=== PATIENT | male | born 1945 | race Caucasian/White ===

== ENCOUNTER 2023-12-14 06:46 | Inpatient (IN) | payer MEDICARE, SELFPAY ==
[2023-11-22 13:04] VITALS: BMI 24.8
[2023-11-22 14:38] LABS: Hematocrit 39.3 % (39.0-52.0); Hemoglobin 13.9 g/dL (13.0-18.0); Mean Corp Hgb Conc. 35.4 g/dL (33.0-37.0); Mean Corpuscular Hgb 33.3 pg (27.0-31.0); Mean Corpuscular Volume 94.2 fL (80.0-94.0); Mean Platelet Volume 11.5 fL (7.4-10.4); Platelet Count 212 10^3/uL (130-400); Red Blood Cell Count 4.17 10^6/uL (4.70-6.10); Red Cell Dist. Width 13.1 % (11.5-14.5); White Blood Cell Count 3.7 10^3/uL (4.8-10.8)
[2023-11-22 15:09] LABS: ALT (SGPT) 26 U/L (0-50); AST (SGOT) 29 U/L (17-59); Albumin 4.9 g/dl (3.5-5.0); Alkaline Phosphatase 57 U/L (38-126); Blood Urea Nitrogen 11 mg/dl (9-20); Calcium 10.1 mg/dl (8.4-10.2); Carbon Dioxide 26 mmol/L (22-30); Chloride 101 mmol/L (98-107); Estimated Creatinine Clearance 72 ml/min; Glucose 110 mg/dl (70-99); Potassium 4.5 mmol/L (3.5-5.1); Sodium 139 mmol/L (135-145); Total Protein 6.9 g/dl (6.3-8.2); eGFR > 60.00
[2023-11-23 08:39] LABS: Glycohemoglobin (HgbA1c) 5.2 % (4.0-5.6)
[2023-12-09 13:03] VITALS: BMI 24.8
--- NOTE | 2023-12-09 13:09 | PTCARENOTE ---
Pt's son Zeke states they have not set up outpt PT yet, would prefer in home PT. He was instructed to make outpt PT appt and could let Ellen in office aware that they prefer home PT.
[2023-12-14] VITALS (19 sets, daily range): BP systolic 91–134; BP diastolic 56–94; PULSE 55; O2SAT 98; BMI 24.8
[2023-12-14] MEDS: TYLENOL 650 MG PO ×5 (08:14→23:48)
[2023-12-14] MEDS: CELEBREX 200 MG PO (08:14)
[2023-12-14] MEDS: NORMOSOL-R/PLASMALYTE-A 1000 IV ×2 (08:15→14:04)
--- NOTE | 2023-12-14 12:56 | W.PN.ORTHO ---
Today's Communication / Plan
-
D/c when clinically stable.
Assessment
.
Distal Motor Intact: Yes
Dressing:
Clean, dry and intact.
Assessment:
L hip OA s/p L JOSH w/ Dr Mcfadden 12/14/23
DVT prophylaxis - Xarelto at modified dosing, b/l venous foot pumps
- Will resume Xarelto 20 mg qPM POD 3 if hemodynamically stable
HTN - + parameters - monitor BP
PAF s/p PVI 2017 and 2019 - asymptomatic rapid A fib in PACU - monitor on tele
- Consult cardio. Of note, new medical management is likely warranted. Pt cannot confirm meds d/t underlying cognitive issues. Son, Jose, cannot confirm medications we have listed on file. Jose mentions he only took Amlodipine this morning as he
could not find the patient's other medications. He typically follows cardio through [facility]; however, he did see Dr. Zamora for surgical clearance 12/04
GERD - add Pepcid HS
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
BPH - monitor voids
- Add daily Flomax
Hyperlipidemia
Childhood asthma
Thyroid nodule
Depression
Anxiety
History of alcohol abuse in remission
Discussed patient's assumed home anti-arrhythmics and post-op anti-emetics prn w/ pharmacy this AM. Tigan IM would likely be the safest anti-emetic if needed. Will hold on ordering for now. Will monitor patient closely.
Plan
.
Surgery / Date: L JOSH w/ Dr Mcfadden 12/14/23
DVT Prophylaxis: Other (Xarelto)
Activity:
Out of bed.
PT/OT
Discharge Plan: Home w/ VN
Subjective
.
.:
Patient resting comfortably.
Vital Signs and Labs
.
Vital Signs and Labs:
Lab Results
11/22/23 12:58
11/22/23 12:58
Temp Pulse Resp BP Pulse Ox
98.5 F 65 16 134/76 99
12/14/23 07:31 12/14/23 07:31 12/14/23 07:31 12/14/23 07:31 12/14/23 07:31
Physical Exam
-
HEENT: No pallor, cyanosis, or jaundice. Throat clear.
NECK: Supple. No JVD.
RESPIRATORY: Lungs clear to auscultation.
CVS: Irregular irregular.
ABDOMEN: Soft, non-tender. No distension.
EXTREMITIES: Strength equal, no calf pain with palpation/dorsiflexion.
ELECTRICIAN SECOND: AOx2 (name, place)
[2023-12-14] MEDS: LOPRESSOR 50 MG PO (13:08)
[2023-12-14] MEDS: FLOMAX 0.4 MG PO (13:09)
[2023-12-14] MEDS: TYLENOL PO (13:11)
--- NOTE | 2023-12-14 13:36 | PTCARENOTE ---
Pt arrived to [facility] [address] from PACU s/p L THR. Pt AAOx3, NV intact, L hip antibacterial dressing C/D/I. Pt oriented to call meza and room, bed locked and in lowest position, call meza within reach.
--- NOTE | 2023-12-14 13:51 | W.PN.CD ---
Addendum entered and electronically signed by Mika Arguelles MD 12/14/23 14:22:
-
-
? amlodipine use. Med list from [facility] has dilt. and not amlodipine.
Does he have HTN?
Will not use Ca++ venkata now.
Will use metoprolol.
Original Note:
Today's Communication / Plan
-
-
-
Consult Dictated
Add rate control with Metoprolol tartrate 50 mg QID (hold HR < 70 or SBP < 100)
When fully anticoagulated we can consider ERINN/DCCV should AFib persist
Unclear if he was actually taking Flecainide or perhaps dofetilide, his son has 2 med lists and the med is not on the lists and no pill bottle for it found at home per son. I needed to speak to him as the pt has memory impairment and provides
inadequate information.
Impression / Plan
-
Recurrent AFib
- Pattern in the past was paroxysmal ()
- Rate: 120s in PACU
- 2 prior AFib ablations, uncertain if he was actually taking Flecainide 100 mg BID (son says not on his med list and no pill bottles found at home of that med)
- Has been of Xarelto, held appropriately for surgery, plans for several days of low dose post surgery and then back to full dose, appropriate
- [id number] is at least 4 for age and prior stroke
Old stroke
Memory impairment, uncertain if post infarct or other memory loss disease
DJD
Medications: It is not clear what his true home meds are!!
Subjective:
In the PACU (just recently out from surgery) he had no CP, dyspnea, or palpitations
Physical Exam
Vital Signs/Labs
Vital Signs
Temp Pulse Resp BP Pulse Ox
97.2 F 116 19 121/77 98
12/14/23 13:28 12/14/23 13:28 12/14/23 13:28 12/14/23 13:28 12/14/23 13:28
11/22/23 12:58
11/22/23 12:58
Data Reviewed
-
Date of Service: December 14, 2023
[2023-12-14] MEDS: LIDOCAINE 4% PATCH 2 PATCH TOPICAL (16:18)
[2023-12-14] MEDS: ROXICODONE 7.5 MG PO (17:24)
[2023-12-14] MEDS: LOPRESSOR PO ×2 (17:24→23:50)
[2023-12-14] MEDS: ANCEF 5 IV (17:24)
[2023-12-14] MEDS: LIPITOR 40 MG PO (17:24)
[2023-12-14] MEDS: XARELTO 10 MG PO (17:34)
[2023-12-14] MEDS: DECADRON 4 MG PO (20:24)
[2023-12-14] MEDS: BACTROBAN 2% OINTMENT 1 APPLIC NASAL (20:24)
[2023-12-14] MEDS: COLACE 100 MG PO (20:24)
[2023-12-14] MEDS: SENOKOT 17.2 MG PO (20:25)
[2023-12-14] MEDS: DILAUDID 1 MG IV (20:37)
[2023-12-14] MEDS: ZOLOFT 25 MG PO (23:00)
[2023-12-14] MEDS: PEPCID 20 MG PO (23:00)
[2023-12-15] VITALS (8 sets, daily range): BP systolic 104–127; BP diastolic 67–73; PULSE 57–65; O2SAT 98–100
[2023-12-15] MEDS: ANCEF 5 IV (03:00)
[2023-12-15] MEDS: TYLENOL 650 MG PO ×5 (03:09→20:56)
--- NOTE | 2023-12-15 03:29 | PTCARENOTE ---
Pt has been OOB to toilet w RW and assist x1, minimal pain noted. Assessment ongoing.
[2023-12-15] MEDS: LOPRESSOR PO ×2 (05:48→23:51)
--- NOTE | 2023-12-15 08:31 | W.PN.CD ---
Today's Communication / Plan
-
- Patient is now back in sinus rhythm as of yesterday afternoon.
- Changed from Cardizem CD to metoprolol tartrate 50 mg PO Q6 yesterday; continue that dose for now with plan to transition to BID dosing tomorrow (100 mg PO BID).
- Echocardiogram today.
Impression / Plan
-
Recurrent PAF:
- 2 prior AFib ablations, uncertain if he was actually taking Flecainide 100 mg BID (son says not on his med list and no pill bottles found at home of that med)
- Has been of Xarelto, held appropriately for surgery, plans for several days of low dose post surgery and then back to full dose, appropriate
- [id number] is at least 3 for age and prior stroke
- Patient is now back in sinus rhythm as of yesterday afternoon.
- Changed from Cardizem CD to metoprolol tartrate 50 mg PO Q6 yesterday; continue that dose for now with plan to transition to BID dosing tomorrow (100 mg PO BID).
- Echocardiogram today.
Old stroke
Memory impairment, uncertain if post infarct or other memory loss disease
DJD
Medications: It is not clear what his true home meds are!!
Subjective:
No major events overnight. No cardiac complaints this a.m. Converted back to sinus rhythm yesterday afternoon.
Physical Exam
Vital Signs/Labs
Vital Signs
Temp Pulse Resp BP Pulse Ox
97.6 F 63 18 125/69 99
12/15/23 07:54 12/15/23 07:54 12/15/23 07:54 12/15/23 07:54 12/15/23 07:54
11/22/23 12:58
11/22/23 12:58
Physical Exam
Constitutional: No acute distress and Comfortable
EENT: Anicteric
Cardiovascular: Rhythm & rate is regular, Systolic murmur absent, Pedal edema present (Trivial) and S1S2 is normal
Respiratory: Respiratory effort normal and Lungs clear to auscul.
GI: Soft
Neuro/Psych: Alert and Oriented
Other: Skin (Warm, dry, intact)
Data Reviewed
-
Date of Service: December 15, 2023
Echo: Tracing Personally Visualized and interpreted (Telemetry: AF --> Sinus rhythm)
Labs: Labs Reviewed by me
[2023-12-15] MEDS: BACTROBAN 2% OINTMENT 1 APPLIC NASAL ×2 (09:47→20:55)
[2023-12-15] MEDS: LIDOCAINE 4% PATCH 2 PATCH TOPICAL (09:48)
[2023-12-15] MEDS: SENOKOT 17.2 MG PO ×2 (09:49→20:56)
[2023-12-15] MEDS: FLOMAX 0.4 MG PO (09:49)
[2023-12-15] MEDS: COLACE 100 MG PO ×2 (09:51→20:55)
[2023-12-15] MEDS: DECADRON 4 MG PO ×2 (09:51→20:56)
[2023-12-15] MEDS: DITROPAN 5 MG PO (09:51)
[2023-12-15] MEDS: LOPRESSOR 50 MG PO ×2 (12:12→18:36)
[2023-12-15] MEDS: ROXICODONE 5 MG PO ×2 (12:12→21:08)
--- NOTE | 2023-12-15 13:01 | VNURNOTE ---
Home Health Liaison spoke with son Zeke to discuss [facility] nurse/therapy, visits, schedule and homebound status. He is agreeable and understands that visits at home will be 2-3 x per week to assess and teach medical management. He is aware that VN
will contact them for start of care in 1-2 days after discharge from . Requesting calls to schedule appts be made through him. Will note that on referral. [facility] referral completed in [facility].
--- NOTE | 2023-12-15 13:56 | W.PN.ORTHO ---
Today's Communication / Plan
-
D/c when clinically stable.
Assessment
.
Distal Motor Intact: Yes
Dressing:
Clean, dry and intact.
Assessment:
L hip OA s/p Ligia MORENO w/ Dr Mcfadden 12/14/23
DVT prophylaxis - Xarelto at modified dosing, b/l venous foot pumps
- Will resume Xarelto 20 mg qPM POD 3 if hemodynamically stable
HTN - + parameters - monitor BP
PAF s/p PVI 2017 and 2019 - asymptomatic rapid A fib in PACU - monitor on tele
- Appreciate cardio. Pt has been in NSR since yesterday afternoon d/t their recommendations. Continue Metoprolol 50 mg q6h (w/ HR, SBP parameters) w/ transition to Metoprolol 100 mg BID tomorrow
- Await echo results
- Pt reported that he keeps all his previous empty pill bottles at home and has been doing so for 'some time'. 'I just can't seem to part from them.' This is likely why his medication list was questionable. Did advise son Jose that old, empty
medication bottles should be disposed of right away to avoid further confusion.
GERD - added Pepcid HS
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
BPH - voiding appropriately w/ added Flomax
Hyperlipidemia
Childhood asthma
Thyroid nodule
Depression
Anxiety
History of alcohol abuse in remission
Plan
.
Surgery / Date: Ligia MORENO w/ Dr Mcfadden 12/14/23
DVT Prophylaxis: Other (Xarelto )
Activity:
Out of bed.
PT/OT
Discharge Plan: Home w/ VN
Subjective
.
.:
Patient resting comfortably in his chair.
Left hip pain currently well tolerated w/ his pain medications.
Denies any new significant complaints.
Vital Signs and Labs
.
Vital Signs and Labs:
Lab Results
11/22/23 12:58
11/22/23 12:58
Temp Pulse Resp BP Pulse Ox
98.1 F 75 19 127/70 98
12/15/23 11:10 12/15/23 11:10 12/15/23 11:10 12/15/23 11:10 12/15/23 11:10
Non-invasive Hgb result: 12
Physical Exam
-
HEENT: No pallor, cyanosis, or jaundice. Throat clear.
NECK: Supple. No JVD.
RESPIRATORY: Lungs clear to auscultation.
CVS: S1, S2 normal. RRR.�
ABDOMEN: Soft, non-tender. No distension.
EXTREMITIES: Strength equal, no calf pain with palpation/dorsiflexion. Calves soft.
NEUROSURGICAL NURSE: AOx2. Cognitive deficits at baseline.
--- NOTE | 2023-12-15 16:00 | CM ---
Alert awake patient who lives alone in lives in a 3 story home with 1 step to enter and 14 steps to bed and bathroom. He is independent in driving and in all activities of daily living.He uses a cane and walker. He was offered VN he requested [facility]
Liaison SSinclair notified of referral.Son present during interview/He will be staying with [facility] [place].
No VN hx / No SNF history
Pharmacy [facility]
PCP DR Ceballos
PLAN Home with [facility]
[2023-12-15] MEDS: LIPITOR 40 MG PO (18:36)
[2023-12-15] MEDS: XARELTO 10 MG PO (18:36)
[2023-12-15] MEDS: DITROPAN PO (20:58)
[2023-12-15] MEDS: PEPCID 20 MG PO (21:05)
[2023-12-15] MEDS: ZOLOFT 25 MG PO (21:06)
[2023-12-15] MEDS: TYLENOL PO (23:51)
[2023-12-16] VITALS (8 sets, daily range): BP systolic 100–141; BP diastolic 55–77; PULSE 50–51; O2SAT 95
[2023-12-16] MEDS: TYLENOL 650 MG PO ×6 (00:48→20:10)
[2023-12-16] MEDS: ROXICODONE 7.5 MG PO (00:48)
[2023-12-16] MEDS: TYLENOL PO (05:08)
[2023-12-16] MEDS: ROXICODONE 5 MG PO ×3 (05:18→17:22)
[2023-12-16] MEDS: LOPRESSOR PO (05:37)
--- NOTE | 2023-12-16 08:08 | W.PN.CD ---
Today's Communication / Plan
-
- Patient remains in sinus rhythm; heart rate down to 40s, but no pauses.
- Echocardiogram yesterday with normal cardiac function; LVEF 55-60%, no significant valvular disease.
- Will reduce metoprolol tartrate dose from 50 mg Q6 to 50 mg BID, which should be home dose.
- Do not resume Cardizem CD.
- Can discontinue telemetry.
- Outpatient follow-up with primary Industrial Commercial Groundskeeper.
Impression / Plan
-
Recurrent PAF:
- 2 prior AFib ablations, uncertain if he was actually taking Flecainide 100 mg BID (son says not on his med list and no pill bottles found at home of that med)
- Has been of Xarelto, held appropriately for surgery, plans for several days of low dose post surgery and then back to full dose, appropriate
- [id number] is at least 4 for age and prior stroke
- Patient remains in sinus rhythm; heart rate down to 40s, but no pauses.
- Echocardiogram yesterday with normal cardiac function; LVEF 55-60%, no significant valvular disease.
- Will reduce metoprolol tartrate dose from 50 mg Q6 to 50 mg BID, which should be home dose.
- Do not resume Cardizem CD.
- Can discontinue telemetry.
- Outpatient follow-up with primary Industrial Commercial Groundskeeper.
Old stroke
Memory impairment, uncertain if post infarct or other memory loss disease
DJD
Medications: It is not clear what his true home meds are!!
Subjective:
No major cardiac events overnight. No cardiac complaints this a.m.
Physical Exam
Vital Signs/Labs
Vital Signs
Temp Pulse Resp BP Pulse Ox
98.6 F 52 20 128/70 98
12/16/23 03:16 12/16/23 05:37 12/16/23 03:16 12/16/23 03:16 12/16/23 03:16
09/17/24 12:58
11/22/23 12:58
Physical Exam
Constitutional: No acute distress and Comfortable
EENT: Anicteric
Cardiovascular: Rhythm & rate is regular, Systolic murmur absent, Pedal edema present (trace) and S1S2 is normal
Respiratory: Respiratory effort normal and Lungs clear to auscul.
GI: Soft
Neuro/Psych: Alert
Other: Skin (Warm, dry, intact)
Data Reviewed
-
Date of Service: December 16, 2023
EKG: Tracing Personally Visualized and interpreted (Telemetry: Sinus bradycardia 40-60 bpm)
Echo: Report Reviewed by me (LVEF 55-60%)
Labs: Labs Reviewed by me
[2023-12-16] MEDS: LIDOCAINE 4% PATCH 2 PATCH TOPICAL (08:33)
[2023-12-16] MEDS: FLOMAX 0.4 MG PO (08:40)
[2023-12-16] MEDS: COLACE 100 MG PO (08:40)
[2023-12-16] MEDS: DECADRON 4 MG PO ×2 (08:40→20:10)
[2023-12-16] MEDS: LOPRESSOR 50 MG PO ×2 (08:41→20:10)
[2023-12-16] MEDS: SENOKOT 17.2 MG PO (08:41)
--- NOTE | 2023-12-16 09:39 | W.PN.ORTHO ---
Today's Communication / Plan
-
Await further PT and OT recs.
Pt's son Jose now expressing concerns re: d/c planning to home w/ home PT/VN. Pt likely will need SNF - discussed w/ CM.
Assessment
.
Distal Motor Intact: Yes
Dressing:
Clean, dry and intact.
Assessment:
L hip OA s/p L JOSH w/ Dr Mcfadden 12/14/23
DVT prophylaxis - Xarelto at modified dosing, b/l venous foot pumps
- Will resume Xarelto 20 mg qPM POD 3 since hemodynamically stable
HTN - + parameters - BPs overall stable
PAF s/p PVI 2016 and 2019 - asymptomatic rapid A fib in PACU - monitored on tele
- Appreciate cardio. Pt has been in NSR since 12/13 afternoon d/t their recommendations. Was on Metoprolol 50 mg q6h (w/ HR, SBP parameters) and now transitioned to 50 mg PO BID. Cardio has signed off given stability.
- Echo 12/14 WNL
- Pt reported 12/14 that he keeps all his previous empty pill bottles at home and has been doing so for 'some time'. 'I just can't seem to part from them.' This is likely why his medication list was questionable. Did advise son Jose that old, empty
medication bottles should be disposed of right away to avoid further confusion.
- Will follow-up w/ routine residential framing carpenter upon d/c. Also has an appointment w/ cardiology - [facility] location.
GERD - added Pepcid HS
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
BPH - voiding appropriately w/ added Flomax
Hyperlipidemia
Childhood asthma
Thyroid nodule
Depression
Anxiety
History of alcohol abuse in remission
Plan
.
Surgery / Date: L JOSH w/ Dr Mcfadden 12/14/23
DVT Prophylaxis: Other (Xarelto)
Activity:
Out of bed.
PT/OT
Discharge Plan: Home w/ VN
Subjective
.
.:
Patient resting comfortably in his bed.
Some stiffness in L hip overnight; however, overall feels well.
Denies any other new significant complaints.
Vital Signs and Labs
.
Vital Signs and Labs:
Lab Results
11/22/23 12:58
11/22/23 12:58
Temp Pulse Resp BP Pulse Ox
97.5 F 57 18 141/77 95
12/16/23 07:25 12/16/23 07:25 12/16/23 07:25 12/16/23 07:25 12/16/23 07:25
Non-invasive Hgb result: 13.9
Physical Exam
-
HEENT: No pallor, cyanosis, or jaundice. Throat clear.
NECK: Supple. No JVD.
RESPIRATORY: Lungs clear to auscultation.
CVS: S1, S2 normal. RRR.�
ABDOMEN: Soft, non-tender. No distension.
EXTREMITIES: Strength equal, no calf pain with palpation/dorsiflexion. Calves soft.
SENIOR GRADUATE ADVISOR: AOx2. Cognitive deficits at baseline.
--- NOTE | 2023-12-16 14:35 | CM ---
Addendum entered by Michelle Balderas RN 12/16/23 15:37:
CM spoke with the patient's son Jose at the bedside. Discussed SNF vs home with VN. Family wants SNF, patient agreeable. Referrals sent to area SNF/rehabs. No precert required.
Addendum entered by Michelle Balderas RN 12/16/23 15:35:
IMM signed and placed on chart.
Original Note:
Reviewed the chart notes and spoke with the patient at the bedside. Patient defers to son to discuss discharge plans. Initially plan was for the patient to return home with [facility], but son has concerns for patient and feels SNF more appropriate.
Left voice message for son Zeke. CM continues to be available to patient/family and is monitoring medical plan for needs at discharge.
Plan: Discharge plans will depend on the patient's progress and wish of the son.
[2023-12-16] MEDS: XARELTO 10 MG PO (17:24)
[2023-12-16] MEDS: LIPITOR 40 MG PO (17:24)
[2023-12-16] MEDS: ZOLOFT 25 MG PO (20:10)
[2023-12-16] MEDS: PEPCID 20 MG PO (20:10)
[2023-12-16] MEDS: SENOKOT PO (20:11)
[2023-12-16] MEDS: COLACE PO (20:11)
[2023-12-17] MEDS: TYLENOL PO ×2 (00:36→04:56)
[2023-12-17 03:00] VITALS: BP 120/74
[2023-12-17 07:20] VITALS: BP 121/65
[2023-12-17] MEDS: ROXICODONE 5 MG PO (08:30)
[2023-12-17] MEDS: LOPRESSOR 50 MG PO ×2 (08:31→21:03)
[2023-12-17] MEDS: TYLENOL 650 MG PO ×5 (08:31→23:34)
[2023-12-17] MEDS: DECADRON 4 MG PO (08:31)
[2023-12-17] MEDS: FLOMAX 0.4 MG PO (08:31)
[2023-12-17] MEDS: DITROPAN 5 MG PO ×2 (08:32→21:04)
[2023-12-17] MEDS: SENOKOT 17.2 MG PO ×2 (08:35→21:04)
[2023-12-17] MEDS: COLACE 100 MG PO ×2 (08:35→21:03)
[2023-12-17] MEDS: LIDOCAINE 4% PATCH 2 PATCH TOPICAL (08:35)
--- NOTE | 2023-12-17 10:16 | W.PN.ORTHO ---
Today's Communication / Plan
-
POD #3 Ligia MORENO 12/14/[address] Mcfadden.
- WBAT to LLE with use of walker for assistance.
- DVT prophylaxis - Xarelto at modified dosing, b/l venous foot pumps. Will resume Xarelto 20 mg qPM POD 3 since hemodynamically stable.
- We appreciate the assistance of PT/OT. Mind THP's.
- Pain control. Ice therapy for pain and edema control.
- Maintain Aquacel dressing until 7 to 10 days postop.
- Case management consult for discharge planning. SNF placement.
- Orthopedic surgery will continue to follow along.
Assessment
.
Distal Motor Intact: Yes
Dressing:
Aquacel dressing intact. Small amount of bloody drainage contained within Aquacel dressing.
Calf is soft and nontender to palpation.
Able to dorsiflex and plantarflex his left ankle.
NVI distally.
Assessment:
L hip OA s/p Ligia MORENO w/ Dr Mcfadden 12/14/23
Plan
.
Surgery / Date: Ligia MORENO w/ Dr Mcfadden 12/14/23
DVT Prophylaxis: Other (Xarelto )
Activity:
Out of bed.
PT/OT
Discharge Plan: SNF
Discharge Information:
Appreciate CM
Subjective
.
.:
Patient resting comfortably in bedside chair.
Overall, reports that he feels well. Denies any significant pain about left hip.
Denies any other new significant complaints.
Awaiting SNF placement.
Vital Signs and Labs
.
Vital Signs and Labs:
Lab Results
11/22/23 12:58
11/22/23 12:58
Temp Pulse Resp BP Pulse Ox
97.9 F 57 14 121/65 95
12/17/23 07:20 12/17/23 07:20 12/17/23 07:20 12/17/23 07:20 12/17/23 07:20
Non-invasive Hgb result: 13.3
--- NOTE | 2023-12-17 10:37 | CM ---
Per [facility] and [facility] do not have an available SNF bed.
[facility], [facility] and [facility] are still pending under review.
[2023-12-17 11:00] VITALS: BP 119/68
[2023-12-17 15:20] VITALS: BP 112/61
[2023-12-17] MEDS: LIPITOR 40 MG PO (17:30)
[2023-12-17] MEDS: XARELTO 20 MG PO (17:30)
[2023-12-17 19:12] VITALS: BP 127/69
[2023-12-17] MEDS: ZOLOFT 25 MG PO (21:03)
[2023-12-17] MEDS: PEPCID 20 MG PO (21:04)
[2023-12-17 23:44] VITALS: BP 117/69
[2023-12-18] VITALS (7 sets, daily range): BP systolic 105–133; BP diastolic 58–71; PULSE 56; O2SAT 97
[2023-12-18] MEDS: TYLENOL 650 MG PO ×5 (03:16→20:34)
[2023-12-18] MEDS: ROXICODONE 5 MG PO ×2 (03:17→21:16)
--- NOTE | 2023-12-18 10:01 | W.PN.ORTHO ---
Today's Communication / Plan
-
POD #4 L JOSH 12/14/[address] Mcfadden.
- WBAT to LLE with use of walker for assistance.
- DVT prophylaxis - Resumed Xarelto 20 mg qPM POD #3.
- We appreciate the assistance of PT/OT. Mind THP's.
- Pain control. Ice therapy for pain and edema control.
- Maintain Aquacel dressing until 7 to 10 days postop.
- Case management consult for discharge planning. Awaiting SNF placement.
- Orthopedic surgery will continue to follow along.
Assessment
.
Distal Motor Intact: Yes
Dressing:
Aquacel dressing intact. Small amount of bloody drainage contained within Aquacel dressing.
Calf is soft and nontender to palpation.
Able to dorsiflex and plantarflex his left ankle.
NVI distally.
Assessment:
L hip OA s/p Ligia MORENO w/ Dr Mcfadden 12/14/23
Plan
.
Surgery / Date: Ligia MORENO w/ Dr Mcfadden 12/14/23
DVT Prophylaxis: Other (Xarelto )
Activity:
Out of bed.
PT/OT
Discharge Plan: SNF
Discharge Information:
Appreciate CM.
Subjective
.
.:
Patient resting comfortably in bed. Denies any other new complaints at this time. Awaiting SNF placement.
Vital Signs and Labs
.
Vital Signs and Labs:
Lab Results
11/22/23 12:58
11/22/23 12:58
Temp Pulse Resp BP Pulse Ox
98.1 F 47 16 105/58 97
12/18/23 07:15 12/18/23 07:15 12/18/23 07:15 12/18/23 07:15 12/18/23 07:15
Non-invasive Hgb result: 13.3
[2023-12-18] MEDS: LIDOCAINE 4% PATCH 2 PATCH TOPICAL (10:14)
[2023-12-18] MEDS: FLOMAX 0.4 MG PO (10:15)
[2023-12-18] MEDS: SENOKOT 17.2 MG PO ×2 (10:15→20:34)
[2023-12-18] MEDS: COLACE 100 MG PO ×2 (10:15→20:34)
[2023-12-18] MEDS: LOPRESSOR PO (11:57)
[2023-12-18] MEDS: LOPRESSOR 25 MG PO ×3 (12:23→20:35)
--- NOTE | 2023-12-18 12:37 | W.PN.CD ---
Today's Communication / Plan
-
Continue metoprolol monitor heart rates
Impression / Plan
-
Recurrent PAF:
- 2 prior AFib ablations, uncertain if he was actually taking Flecainide 100 mg BID (son says not on his med list and no pill bottles found at home of that med)
- Has been of Xarelto, held appropriately for surgery, plans for several days of low dose post surgery and then back to full dose, appropriate
- [id number] is at least 4 for age and prior stroke
- Patient remains in sinus rhythm. Heart rate currently in the 50s to 60s but previously was in the 40s
- Echocardiogram this admit with normal cardiac function; LVEF 55-60%, no significant valvular disease.
-Metoprolol was reduced to 50 twice daily 50 mg BID, received half dose of metoprolol this morning initially due to some current concerns regarding bradycardia although on my review of heart rates it is reasonable at this point to continue on
dosing of metoprolol.
- Do not resume Cardizem CD.
- Can discontinue telemetry.
- Outpatient follow-up with primary Braze Operator.
Old stroke
Memory impairment, uncertain if post infarct or other memory loss disease
DJD
Medications: It is not clear what his true home meds are!!
Subjective:
No major cardiac events overnight. No cardiac complaints this a.m.
Physical Exam
Vital Signs/Labs
Vital Signs
Temp Pulse Resp BP Pulse Ox
97.6 F 64 16 124/69 97
12/18/23 11:05 12/18/23 12:23 12/18/23 11:05 12/18/23 11:05 12/18/23 11:05
11/22/23 12:58
11/22/23 12:58
Physical Exam
Constitutional: No acute distress
Cardiovascular: Rhythm & rate is regular
Respiratory: Respiratory effort normal
GI: Soft
Data Reviewed
-
Date of Service: December 18, 2023
EKG: Report Reviewed by me
Medical Tests (PFT, Pathology etc): Report Reviewed by me
Labs: Labs Reviewed by me
--- NOTE | 2023-12-18 13:39 | CM ---
CM following re: d/c planning.
Pt is POD #4 L JOSH 12/14/2023.
D/c plan is for SNF placement following hospitalization.
At this time, no beds available at [facility], [facility] or [facility].
Awaiting responses from additional facilities.
[2023-12-18] MEDS: LIPITOR 40 MG PO (17:29)
[2023-12-18] MEDS: XARELTO 20 MG PO (17:29)
[2023-12-18] MEDS: ZOLOFT 25 MG PO (20:34)
[2023-12-18] MEDS: PEPCID 20 MG PO (20:34)
[2023-12-19] MEDS: TYLENOL PO ×2 (02:17→04:34)
[2023-12-19 03:33] VITALS: BP 144/79
[2023-12-19 07:20] VITALS: BP 136/67
[2023-12-19] MEDS: COLACE 100 MG PO (07:55)
[2023-12-19] MEDS: TYLENOL 650 MG PO ×2 (07:56→12:21)
[2023-12-19] MEDS: DITROPAN 5 MG PO (07:56)
[2023-12-19] MEDS: FLOMAX 0.4 MG PO (07:56)
[2023-12-19] MEDS: LOPRESSOR 25 MG PO (07:57)
[2023-12-19] MEDS: LIDOCAINE 4% PATCH 2 PATCH TOPICAL (07:57)
[2023-12-19] MEDS: SENOKOT 17.2 MG PO (07:58)
--- NOTE | 2023-12-19 08:49 | W.PN.ORTHO ---
Today's Communication / Plan
-
Continue to work w/ PT and OT.
Await finalized recs from Cardio re: medications.
D/c when SNF bed available.
Assessment
.
Distal Motor Intact: Yes
Dressing:
Clean, dry and intact.
Assessment:
L hip OA s/p L JOSH w/ Dr Mcfadden 12/14/23
DVT prophylaxis - Xarelto initally at modified dosing, b/l venous foot pumps
- Resumed Xarelto 20 mg qPM POD 3 since hemodynamically stable
HTN - + parameters - BPs overall stable
PAF s/p PVI 2016 and 2019 - asymptomatic rapid A fib in PACU - monitor on tele
- Appreciate cardio. Pt has been in NSR/asymptomatic sinus fredy since 12/13 afternoon d/t their recommendations. Was on Metoprolol 50 mg q6h (w/ HR, SBP parameters) and now transitioned to 25 mg PO TID.
- Echo 12/14 WNL
- Pt reported 12/14 that he keeps all his previous empty pill bottles at home and has been doing so for 'some time'. 'I just can't seem to part from them.' This is likely why his pre-op medication list was questionable. Did advise son Jose that old,
empty medication bottles should be disposed of right away to avoid further confusion.
- Will follow-up w/ routine condominium property manager upon d/c. Also has an appointment w/ cardiology - [facility] location.
GERD - added Pepcid HS
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
BPH - voiding appropriately w/ added Flomax
Hyperlipidemia
Childhood asthma
Thyroid nodule
Depression
Anxiety
History of alcohol abuse in remission
Plan
.
Surgery / Date: Ligia MORENO w/ Dr Mcfadden 12/14/23
DVT Prophylaxis: Other (Xarelto)
Activity:
Out of bed.
PT/OT
Discharge Plan: SNF
Subjective
.
.:
Patient resting comfortably in his chair.
L hip pain controlled w/ current pain meds.
Recurrent a fib - medications as directed by Cardio.
Denies any new significant complaints.
Vital Signs and Labs
.
Vital Signs and Labs:
Lab Results
11/22/23 12:58
11/22/23 12:58
Temp Pulse Resp BP Pulse Ox
97.8 F 67 18 136/67 97
12/19/23 07:20 12/19/23 07:57 12/19/23 07:20 12/19/23 07:57 12/19/23 07:20
Non-invasive Hgb result: 13.3
Physical Exam
-
HEENT: No pallor, cyanosis, or jaundice. Throat clear.
NECK: Supple. No JVD.
RESPIRATORY: Lungs clear to auscultation.
CVS: S1, S2 normal. RRR.�
ABDOMEN: Soft, non-tender. No distension.
EXTREMITIES: Strength equal, no calf pain with palpation/dorsiflexion. Calves soft.
OBSERVATION NURSE: AOx3. No focal deficits. airbrush artist technical grossly intact
--- NOTE | 2023-12-19 10:12 | CM ---
Addendum entered by Michelle Balderas RN 12/19/23 11:02:
[facility] has accepted the patient today. Patient and son updated. IMM signed and updated. Attending updated.
Call report to: [phone]
Fax report to: [phone]
Medical necessity and transport forms on chart.
Original Note:
Reviewed the chart notes and spoke with the patient at the bedside. Updated referrals sent in [facility]. CM spoke with Xoch[facility] from [facility], no male beds available. CM continues to be available to patient/family and is monitoring medical plan
for needs at discharge.
Plan: Discharge to SNF/rehab once bed found. No precert required.
[2023-12-19 10:49] VITALS: BP 124/57; PULSE 61; O2SAT 99
[2023-12-19 11:05] VITALS: BP 113/63
--- NOTE | 2023-12-19 11:47 | W.PN.CD ---
Today's Communication / Plan
-
Cont home metop 50 mg bid
OK to discharge from CV perspective
Impression / Plan
-
Recurrent PAF:
- 2 prior AFib ablations, uncertain if he was actually taking Flecainide 100 mg BID (son says not on his med list and no pill bottles found at home of that med)
- Has been of Xarelto, held appropriately for surgery, plans for several days of low dose post surgery and then back to full dose, appropriate
- [id number] is at least 4 for age and prior stroke
- Patient remains in sinus rhythm. Heart rate currently in the 50s to 60s but previously was in the 40s
- Echocardiogram this admit with normal cardiac function; LVEF 55-60%, no significant valvular disease.
-Cont home metop 50 bid
- Do not resume Cardizem CD.
- Can discontinue telemetry.
- Outpatient follow-up with primary Construction Scheduler.
Old stroke
Memory impairment, uncertain if post infarct or other memory loss disease
DJD
Medications: It is not clear what his true home meds are!!
Subjective:
No major cardiac events overnight. He is looking fwd to leaving
Physical Exam
Vital Signs/Labs
Vital Signs
Temp Pulse Resp BP Pulse Ox
97.8 F 56 18 113/63 97
12/19/23 11:05 12/19/23 11:05 12/19/23 11:05 12/19/23 11:05 12/19/23 11:05
11/22/23 12:58
11/22/23 12:58
Physical Exam
Constitutional: No acute distress
EENT: Anicteric
Cardiovascular: Rhythm & rate is regular
Respiratory: Respiratory effort normal and Lungs clear to auscul.
GI: Soft
Neuro/Psych: AO x 3
Data Reviewed
-
Date of Service: December 19, 2023
EKG: Tracing Personally Visualized and interpreted (sr)
Echo: Report Reviewed by me
Labs: Labs Reviewed by me
--- NOTE | 2023-12-19 11:51 | W.DS.TRANS ---
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
-
Discharge Instructions:
Sleep Apnea Risk Intermediate
Discharge Diagnosis/Procedures Recurrent atrial fibrillation, L hip OA s/p L
[facility] w/ Dr Mcfadden 12/14/23
Diet Other diet
Additional Diets Diabetic carb controlled x1 week for wound
healing/infection prevention
Activity As tolerated,With Walker
Driving Restrictions Not until seen by your Dr
Bathing Restrictions OK to Shower
Other Services PT
Wound Care Dressing to be removed 1 week post-surgery.
Instructions:
Stand-Alone Forms: Total Hip/Knee Replacement D/C
Changes to Home Medications: Yes
Discharge Medications:
DC Medications w/original date entered in [facility]
fluticasone propionate 50 mcg/actuation nasal spray,suspension 1 spray intranasal DAILYPRN PRN congestion 07/18/17
rivaroxaban 20 mg tablet (Xarelto) 20 mg PO QPM ##30 07/21/17
atorvastatin 40 mg tablet 40 mg PO QPM High Cholesterol 11/18/17
Probiotic 1 tab PO DAILY Supplement 12/09/23
clobetasol 0.05 % topical cream 1 applic topical DAILY Skin Issues 12/09/23
ketoconazole 2 % topical cream 1 applic topical DAILY Skin Issues 12/09/23
multivitamin 1 tab PO DAILY Supplement 12/09/23
omega-3 fatty acids-fish oil 684 mg-1,200 mg capsule,delayed release 1 cap PO DAILY Supplement 12/09/23
sertraline 25 mg tablet 25 mg PO HS Mental Health/Anxiety 12/09/23
sildenafil 50 mg tablet (Viagra) 50 mg PO DAILY PRN ED 12/09/23
acetaminophen 500 mg tablet (Tylenol Extra Strength) 1,000 mg (2 x 500 mg) PO Q6H #60 tabs 12/16/23
docusate sodium 100 mg capsule 100 mg PO BID #30 caps 12/16/23
lidocaine 4 % topical patch 2 patch topical DAILY #30 ea 12/16/23
metoprolol tartrate 50 mg tablet 50 mg PO BID #60 tabs 12/16/23
ondansetron HCl 4 mg tablet 4 mg PO Q6H PRN nausea and vomiting #30 tabs 12/16/23
oxybutynin chloride 10 mg tablet,extended release 24 hr 10 mg PO Q48H BPH #0 tabs 12/16/23
oxycodone 5 mg tablet 5 - 10 mg (1 - 2 x 5 mg) PO Q6H PRN moderate-severe pain #15 tabs 12/16/23
sennosides 8.6 mg tablet (senna) 17.2 mg (2 x 8.6 mg) PO BID PRN Constipation #30 tabs 12/19/23
Home Medication Changes
acetaminophen 500 mg tablet (Tylenol Extra Strength) 1,000 mg (2 x 500 mg) PO Q6H #60 tabs 12/16/23
docusate sodium 100 mg capsule 100 mg PO BID #30 caps 12/16/23
lidocaine 4 % topical patch 2 patch topical DAILY #30 ea 12/16/23
metoprolol tartrate 50 mg tablet 50 mg PO BID #60 tabs 12/16/23
ondansetron HCl 4 mg tablet 4 mg PO Q6H PRN nausea and vomiting #30 tabs 12/16/23
oxycodone 5 mg tablet 5 - 10 mg (1 - 2 x 5 mg) PO Q6H PRN moderate-severe pain #15 tabs 12/16/23
sennosides 8.6 mg tablet (senna) 17.2 mg (2 x 8.6 mg) PO BID PRN Constipation #30 tabs 12/19/23
Pending Results: No
[2023-12-19 15:20] VITALS: BP 111/73
== END 2023-12-19 16:30 | DRG 470 ==
LOC: 2 SOUTH 06:46
PROVIDERS: ADMITTING PHYSICIAN Orthopaedic Surgery; CONSULT PHYSICIAN Internal Medicine Cardiovascular Disease; FAMILY PHYSICIAN Family Medicine; REFERRING PHYSICIAN Internal Medicine Cardiovascular Disease
PROC: 0SRB03A Replacement of Left Hip Joint with Ceramic Synthetic Substitute, Uncemented, Open Approach (ICD-10-PCS; 2023-12-14)
DX: M16.12 Unilateral primary osteoarthritis, left hip (principal); I48.0 Paroxysmal atrial fibrillation; I10 Essential (primary) hypertension; N40.0 Benign prostatic hyperplasia without lower urinary tract symptoms
CPT/HCPCS: 36415; 73502; 80053; 83036; 85027; 87070; 93005; 93306; 97110; 97116; 97163; 97167; 97530; 97535; C1776

== ENCOUNTER 2024-04-11 19:36 | Emergency (ER) | payer MEDICARE, SELFPAY ==
[2024-04-11 19:37] VITALS: BMI 27.0
[2024-04-11 19:38] VITALS: BP 155/77
[2024-04-11 19:57] LABS: % Basophils 1.2 % (0-2); % Eosinophils 4.9 % (0-6); % Immature Granulocytes 0.2 % (0-0.5); % Lymphocytes 28.6 % (20.5-51.1); % Monocytes 11.2 % (1.7-9.3); % Neutrophils 53.9 % (42.2-75.2); Absolute Basophils 0.1 10^3/uL (0-0.2); Absolute Eosinophils 0.3 10^3/uL (0-0.7); Absolute Lymphocytes 1.5 10^3/uL (1.2-3.4); Absolute Monocytes 0.6 10^3/uL (0.1-0.6); Absolute Neutrophils 2.8 10^3/uL (1.4-6.5); Hematocrit 41.1 % (39.0-52.0); Hemoglobin 14.2 g/dL (13.0-18.0); Mean Corp Hgb Conc. 34.5 g/dL (33.0-37.0); Mean Corpuscular Hgb 33.3 pg (27.0-31.0); Mean Corpuscular Volume 96.5 fL (80.0-94.0); Mean Platelet Volume 10.3 fL (7.4-10.4); Nucleated Red Blood Cells % 0 % (-); Platelet Count 196 10^3/uL (130-400); Red Blood Cell Count 4.26 10^6/uL (4.70-6.10); Red Cell Dist. Width 13.1 % (11.5-14.5); White Blood Cell Count 5.1 10^3/uL (4.8-10.8)
[2024-04-11 20:18] LABS: INR 1.34; PT 17.1 Sec (11.4-14.6)
[2024-04-11 20:19] LABS: APTT 34.1 Sec (23.4-35.0)
[2024-04-11 20:23] LABS: Troponin I < 0.012 ng/ml
[2024-04-11 20:41] LABS: ALT (SGPT) 17 U/L (0-50); AST (SGOT) 24 U/L (17-59); Albumin 4.8 g/dl (3.5-5.0); Alkaline Phosphatase 56 U/L (38-126); Blood Urea Nitrogen 15 mg/dl (9-20); Calcium 9.9 mg/dl (8.4-10.2); Carbon Dioxide 27 mmol/L (22-30); Chloride 103 mmol/L (98-107); Glucose 123 mg/dl (70-99); Potassium 4.9 mmol/L (3.5-5.1); Sodium 139 mmol/L (135-145); Total Bilirubin 0.9 mg/dl (0.2-1.3); Total Protein 6.6 g/dl (6.3-8.2); eGFR > 60.00
[2024-04-11 22:47] VITALS: BP 122/82
--- NOTE | 2024-04-11 22:47 | ED.CVA ---
History of Present Illness
General
Chief Complaint: CVA/TIA Symptoms
Source: patient, previous hospital records (Hospitalization December 2023 for total left hip replacement. Episode of PAF during OR, resolved postoperatively.) and other (Friend who is accompanying)
Exam Limitations: none
Time Seen by Provider: 04/11/24 22:17
Nursing documentation reviewed up to this point in time: agreed with
Onset of Stroke Symptoms
Onset of symptoms known: Yes
Date of onset of symptoms: 04/07/24
History of Present Illness
History of Present Illness:
This is a 78-year-old gentleman who has history of PAF chronically maintained on metoprolol as well as Xarelto. 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 He also has history of hypertension, hyperlipidemia,
hearing impairment for which he utilizes hearing aids. He has history of osteoarthritis left hip and underwent left hip replacement December 2023.
He arrives to the ED accompanied by a friend. While they were out to dinner this evening patient just happened to mention to his friend that he has had intermittent left lateral vision issues that began approximately 4 days ago, intermittent. He
describes seeing a vague 'wall' left lateral visual field. This wall is somewhat white in color, noted far left lateral visual field and has been intermittent over the past 4 days.
No other associated symptoms, he denies headache, denies loss of vision, denies black spots nor a sense of a curtain, denies flashing of lights, no chest pain, no dizziness nor lightheadedness, no palpitations. No history of similar episodes in the
past.
Patient states the last time he noticed this wall, left lateral visual field was sometime yesterday. He does not believe he has noticed it throughout the day today.
When patient mentioned this vision difficulty to his friend, his friend called his PCP who recommended he come to the ED for evaluation of possible stroke.
Patient states he has been compliant with medications, has not missed any doses.
He does follow with ophthalmology, Dr. Ferrera but believes it has been over a year since his last visit.
He had been following with a neurologist, unsure as to his last visit.
Patient resides alone. His son does not reside in [place] but visits his father frequently and according to patient and his friend, the son keeps up with patient's follow-up visits with various specialists.
Past History
Past History
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
remission, depression, overactive bladder/BPH)
ED Past Surgical History: Cardiac (A-fib ablation) and Orthopedic (Left total hip replacement)
Social History
Tobacco: Non-smoker
Alcohol: None
Drug: None
Personal:
Living: alone
Employment: Retired
Family History
Family History: Other (Noncontributory)
Phy Exam
Physical Exam
Physical Exam:
GENERAL: 78-year-old gentleman appears his stated age, bright and alert, pleasant, appears in no acute distress. Easily communicative. Male friend is accompanying.
EYE: pupils equal and reactive. Extraocular muscles intact. Visual lowery are full bilaterally. Discs are sharp bilaterally. Gross visual acuity intact bilaterally. Anicteric
NECK: Supple, nontender, no meningismus, no significant adenopathy. No JVD. No bruit.
ENT: posterior pharynx is clear, oral mucosa is moist. TM clear b/l, nares patent.
CARDIAC: Regular rate and rhythm. no murmur.
LUNGS: Clear breath sounds bilaterally, no acute respiratory distress, no wheezes/rales/rhonchi
ABDOMEN: Soft, nondistended, without focal tenderness, no r/g, no cvat. normoactive BS.
NEUROLOGICAL: Alert and oriented x3, no focal neuro deficits. Gait is gamez and steady.
SKIN: Warm and dry, normal color, skin intact. No rash.
MUSCULOSKELETAL: No C/C/E. peripheral pulses are full and equal b/l. No palpable tenderness.
PSYCH: Normal and appropriate interaction.
Course
Orders/Labs/Results
Orders:
Orders
04/11/24 19:41
Electrocardiogram (*1) Urgent
Reason for Study: Other
Other Reason for Exam: Possible Stroke
04/11/24 19:42
CT Head W/o Iv Contrast Urgent
Comment:
Reason For Exam: visual change.
EKG- Treatment ONCE
04/11/24 19:51
Complete Blood Count/With Diff Urgent
Comprehensive Metabolic Panel Urgent
PTT Urgent
Prothrombin Time Urgent
Troponin I Urgent
Abnormal Lab Results
04/11/24
19:51
RBC 4.26 L 10^6/uL
(4.70-6.10)
MCV 96.5 H fL
(80.0-94.0)
MCH 33.3 H pg
(27.0-31.0)
Monocytes % 11.2 H %
(1.7-9.3)
PT 17.1 H Sec
(11.4-14.6)
Glucose 123 H mg/dl
(70-99)
04/11/24 19:51
04/11/24 19:51
Vital Signs
Initial and Last Documented VS:
Initial Vital Signs
Temp Pulse Resp BP Pulse Ox
98.4 F 72 16 155/77 99
04/11/24 19:38 04/11/24 19:38 04/11/24 19:38 04/11/24 19:38 04/11/24 19:38
Last Documented Vital Signs
Temp Pulse Resp BP Pulse Ox
98.4 F 72 16 155/77 100
04/11/24 19:38 04/11/24 19:38 04/11/24 19:38 04/11/24 19:38 04/11/24 22:30
MDM/Problems Addressed
Differential Diagnosis Includes:
Patient presents with at least 4-day history of intermittent left lateral visual field vision abnormality described as a whitish colored wall left lateral visual field.
Currently asymptomatic.
Concern for retinal detachment, optic nerve issue, TIA/CVA.
Currently asymptomatic and exam is benign. No evidence of visual field deficit. Very limited bedside retinal exam is unremarkable.
CT of the head is unremarkable, no evidence of acute/subacute stroke.
EKG shows normal sinus rhythm. Normal sinus rhythm has replaced A-fib with RVR noted December 2023. Current EKG looks similar to EKG November 2017.
Labs are unremarkable.
It is reassuring that patient is currently asymptomatic and no focal neurodeficits on exam, no focal vision deficits on exam.
It is also reassuring that he has been compliant with medications, compliant with Xarelto.
Although resides alone has robust/reliable social network including friend who is accompanying.
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
Also recommend prompt follow-up with PCP.
Strict return precautions discussed.
Patient and friend agreeable with this plan.
Chronic conditions affecting care: HTN, Arrhythmia and Neurological disorder
*Radiology
Radiology exam reviewed: radiology read reviewed
*Pulse Oximetry
Patient hypoxic: no
*EKG
Interpreted by ED Provider?: Yes
Interpretation: normal
Comparison EKG: changes noted (Normal sinus rhythm has replaced atrial fibrillation with RVR noted December 14, 2023. EKG today looks similar and unchanged from previous EKG November 2017)
Rate: normal
Rhythm: sinus
[place]: normal axis
Interval: normal interval
QRS Pattern: normal QRS and poor R-wave progression
Ischemia: no ischemia
*Moulder Operator Interpretation
Rate: normal
Interpretation: normal
Rhythm: sinus
*Critical Care Note
Total Time (30-74mins, 75-104mins- exclusive of procedures): Not Applicable
ED Attending Note
-
Portions of this chart may have been created with voice recognition software.� Occasional wrong word or��sound alike� substitutions may have occurred due to the inherent limitations of voice recognition software.
Discharge Plan
Departure
Patient Disposition: Home (Routine Discharge)
Date of Disposition: 04/11/24
Time of Disposition: 22:48
Patient with high blood pressure during this ER visit?: No
Condition: Good
Discharge Problem:
intermittent scotoma left eye
Instructions: Floaters in the Eye
Prescriptions:
No Action
fluticasone propionate 1 SPRAY spray,suspension
1 spray intranasal DAILYPRN PRN (Reason: congestion)
Patient Comments:
attila Alanis was using medication list given to him by PCP and cardio. Flecainide dosage not stated. will attempt to verify with pt.
Xarelto 20 MG tablet
20 mg PO QPM Qty: 30 0RF
Patient Comments:
attila Alanis was using medication list given to him by PCP and cardio. Flecainide dosage not stated. will attempt to verify with pt.
atorvastatin 40 MG tablet
40 mg PO QPM
Patient Comments:
attila Alanis was using medication list given to him by PCP and cardio. Flecainide dosage not stated. will attempt to verify with pt.
multivitamin Tablet
1 tab PO DAILY
Patient Comments:
attila Alanis was using medication list given to him by PCP and cardio. Flecainide dosage not stated. will attempt to verify with pt.
sildenafil [Viagra] 50 mg Tablet
50 mg PO DAILY PRN (Reason: ED)
Patient Comments:
attila Alanis was using medication list given to him by PCP and cardio. Flecainide dosage not stated. will attempt to verify with pt.
clobetasol 0.05 % Cream
1 applic TOPICAL DAILY
Patient Comments:
attila Alanis was using medication list given to him by PCP and cardio. Flecainide dosage not stated. will attempt to verify with pt.
sertraline 25 mg Tablet
25 mg PO HS
Patient Comments:
attila Alanis was using medication list given to him by PCP and cardio. Flecainide dosage not stated. will attempt to verify with pt.
ketoconazole 2 % Cream
1 applic TOPICAL DAILY
Patient Comments:
attila Alanis was using medication list given to him by PCP and cardio. Flecainide dosage not stated. will attempt to verify with pt.
omega-3 fatty acids-fish oil 684-1,200 mg Capsule,Delayed Release(Dr/Ec)
1 cap PO DAILY
Patient Comments:
attila Alanis was using medication list given to him by PCP and cardio. Flecainide dosage not stated. will attempt to verify with pt.
Probiotic
1 tab PO DAILY
Patient Comments:
attila Alanis was using medication list given to him by PCP and cardio. Flecainide dosage not stated. will attempt to verify with pt.
docusate sodium 100 mg Capsule
100 mg PO BID Qty: 30 0RF
lidocaine 4 % Adhesive Patch,Medicated
2 patch topical DAILY Qty: 30 0RF
Rx Instructions:
Over the counter. 12 hours on, 12 hours off.
Apply to sides of left thigh/hip.
metoprolol tartrate 50 mg Tablet
50 mg PO BID Qty: 60 1RF
oxybutynin chloride 10 mg Tablet Extended Release 24hr
10 mg PO Q48H Qty: 0 0RF
Patient Comments:
attila Alanis was using medication list given to him by PCP and cardio. Flecainide dosage not stated. will attempt to verify with pt.
ondansetron HCl 4 mg tablet
4 mg PO Q6H PRN (Reason: nausea and vomiting) Qty: 30 0RF
acetaminophen [Tylenol Extra Strength] 500 mg tablet
1,000 mg PO Q6H Qty: 60 0RF
Rx Instructions:
DO NOT exceed >4000 mg daily.
oxycodone 5 mg tablet
5 - 10 mg PO Q6H PRN (Reason: moderate-severe pain) Qty: 15 0RF
Rx Instructions:
1 tab for moderate pain, 2 if severe.
Dx total joint.
sennosides [senna] 8.6 mg tablet
17.2 mg PO BID PRN (Reason: Constipation) Qty: 30 0RF
Referrals:
Nakul Mauricio MD [Active] - Call in 1-3 days for appt
Nakul Ferrera MD [Active] - Next open appointment
Interventions
Interventions:
*Risk Screen - Suicide Last Done: 04/11/24 19:38
*Neglect/Abuse Screening Last Done: 04/11/24 19:38
Discharge Date and Time
Print Language: DANISH
[2024-04-11 23:00] VITALS: BP 121/81
== END 2024-04-11 23:15 | disposition home or self-care (01) ==
LOC: EMR 19:36
PROVIDERS: Emergency Medicine; EMERGENCY PHYSICIAN Emergency Medicine; FAMILY PHYSICIAN Family Medicine
DX: H53.459 Other localized visual field defect, unspecified eye (principal); I10 Essential (primary) hypertension; E78.00 Pure hypercholesterolemia, unspecified; H91.90 Unspecified hearing loss, unspecified ear; M16.12 Unilateral primary osteoarthritis, left hip; F32.A Depression, unspecified; I48.0 Paroxysmal atrial fibrillation; Z79.01 Long term (current) use of anticoagulants; Z86.73 Personal history of transient ischemic attack (TIA), and cerebral infarction without residual deficits; Z96.642 Presence of left artificial hip joint
CPT/HCPCS: 99284; 70450; 80053; 84484; 85025; 85610; 85730; 93005

== ENCOUNTER → 2024-04-17 10:11 | Outpatient (REF) | payer MEDICARE, SELFPAY | LOC: PAVMRI 10:11 | PROVIDERS: ATTENDING PHYSICIAN Specialist; FAMILY PHYSICIAN Family Medicine | DX: F01.50 Vascular dementia, unspecified severity, without behavioral disturbance, psychotic disturbance, mood disturbance, and anxiety (principal) | CPT/HCPCS: 70551 ==

== ENCOUNTER 2024-08-27 09:44 | Emergency (ER) | payer MEDICARE, SELFPAY ==
--- NOTE | 2024-08-27 10:49 | EDRN ---
This RN assumed care of pt at this time.
--- NOTE | 2024-08-27 11:00 | EDRN ---
Pt was conversant and easily able to answer all questions.
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
--- NOTE | 2024-08-27 11:36 | EDRN ---
Patricia Robledo PA in to see pt and pt now unable to answer questions, including age and month and PCPs name, Unable to find PCP on phone. Pt slow in answering all questions as well.
[2024-08-27 11:43] VITALS: BP 129/74
[2024-08-27 11:50] VITALS: BMI 25.8
[2024-08-27 11:54] LABS: % Basophils 1.4 % (0-2); % Eosinophils 3.8 % (0-6); % Immature Granulocytes 0.4 % (0-0.5); % Lymphocytes 18.8 % (20.5-51.1); % Monocytes 10.3 % (1.7-9.3); % Neutrophils 65.3 % (42.2-75.2); Absolute Basophils 0.1 10^3/uL (0-0.2); Absolute Eosinophils 0.2 10^3/uL (0-0.7); Absolute Lymphocytes 0.9 10^3/uL (1.2-3.4); Absolute Monocytes 0.5 10^3/uL (0.1-0.6); Absolute Neutrophils 3.2 10^3/uL (1.4-6.5); Hemoglobin 13.8 g/dL (13.0-18.0); Mean Corp Hgb Conc. 33.7 g/dL (33.0-37.0); Mean Corpuscular Hgb 33.2 pg (27.0-31.0); Mean Corpuscular Volume 98.6 fL (80.0-94.0); Mean Platelet Volume 10.9 fL (7.4-10.4); Nucleated Red Blood Cells % 0 % (-); Platelet Count 199 10^3/uL (130-400); Red Blood Cell Count 4.16 10^6/uL (4.70-6.10)
[2024-08-27 12:08] VITALS: BP 115/74
[2024-08-27 12:17] LABS: Troponin I < 0.012 ng/ml
[2024-08-27 12:42] LABS: ALT (SGPT) 19 U/L (0-50); AST (SGOT) 19 U/L (17-59); Albumin 4.4 g/dl (3.5-5.0); Alkaline Phosphatase 45 U/L (38-126); Blood Urea Nitrogen 11 mg/dl (9-20); Calcium 9.5 mg/dl (8.4-10.2); Carbon Dioxide 27 mmol/L (22-30); Chloride 107 mmol/L (98-107); Estimated Creatinine Clearance 66 ml/min; Glucose 98 mg/dl (70-99); Potassium 4.5 mmol/L (3.5-5.1); Sodium 140 mmol/L (135-145); Total Bilirubin 0.8 mg/dl (0.2-1.3); Total Protein 6.3 g/dl (6.3-8.2); eGFR > 60.00
[2024-08-27 13:00] VITALS: BP 127/79
--- NOTE | 2024-08-27 13:01 | EDRN ---
Patricia GILL in room w/ pt.
--- NOTE | 2024-08-27 13:08 | EDRN ---
Pt in [place] attempting urine spec. Patricia GILL stated to this RN that pt told her that he sometimes has word finding trouble when gets nervous r/t prior CVA.
--- NOTE | 2024-08-27 13:21 | EDRN ---
Urine spec obtained and sent at this time. Pt after asking Dr. Ruff given some water to drink.
--- NOTE | 2024-08-27 13:26 | EDRN ---
Pt stated to this RN that his inability to answer questions correctly and word find is residual from a prior CVA.
[2024-08-27 13:32] LABS: Urine Albumin Negative (Neg - Trace); Urine Bilirubin Negative (Negative); Urine Character Clear (Clear); Urine Color Yellow; Urine Glucose Negative (Negative); Urine Ketone Negative (Negative); Urine Leukocyte Negative (Negative); Urine Nitrite Negative (Negative); Urine Occult Blood Negative (Negative); Urine Urobilinogen Negative (Neg - 1+)
[2024-08-27 13:51] LABS: TSH 1.61 uIU/ml (0.47-4.68)
[2024-08-27 14:00] VITALS: BP 119/79
== END 2024-08-27 14:58 | disposition home or self-care (01) ==
LOC: EMR 09:44
PROVIDERS: Physician Assistant; EMERGENCY PHYSICIAN Student in an Organized Health Care Education/Training Program; FAMILY PHYSICIAN Family Medicine
DX: R00.2 Palpitations (principal); I48.91 Unspecified atrial fibrillation; I10 Essential (primary) hypertension; E78.00 Pure hypercholesterolemia, unspecified; F32.A Depression, unspecified; Z86.73 Personal history of transient ischemic attack (TIA), and cerebral infarction without residual deficits
CPT/HCPCS: 99284; 70450; 80053; 81003; 83735; 84443; 84484; 85025; 93005